=== PATIENT | male | born 1945 | race Caucasian/White ===

== ENCOUNTER 2019-09-12 11:30 | Emergency (ER) | payer BC ==
[2019-09-12] MEDS ORDERED: Ondansetron 4 MG/2 ML SDV IVPUSH ONE (12:17)
--- NOTE | 2019-09-12 12:21 | EDM.PDOC ---
ED HPI GENERAL MEDICAL PROBLEM - General Chief Complaint: Exposure to Heat or Cold Stated Complaint: SUN STROKE? Time Seen by Provider: 09/12/19 12:05 Source of Information: Reports: Patient History Limitations: Reports: No Limitations - History of Present Illness INITIAL COMMENTS - FREE TEXT/NARRATIVE: 74-year-old male who was working hard yesterday in a hot piece of large equipment, felt he got dehydrated and has been unable to catch up since. When he tries to drink something he can becomes nauseated and vomits, today he feels very weak. Developed chills last night, those seem to have improved. Denies any shortness of breath or chest pain, denies muscle cramps. Today his main concern is persistent weakness and vomiting if he tries to drink anything. Onset: Gradual (Symptoms developed gradually last evening after a long hot days work) Associated Symptoms: Reports: Diaphoresis, Fever/Chills, Loss of Appetite, Malaise, Nausea/Vomiting, Weakness. Denies: Confusion, Chest Pain, Cough - Related Data Allergies Allergy/AdvReac Type Severity Reaction Status Date / Time No Known Allergies Allergy Verified 09/12/19 12:24 Home Meds: Home Meds Levothyroxine Sodium [Synthroid] 25 mcg PO DAILY 09/12/19 [History] atorvaSTATin [Lipitor] 10 mg PO DAILY 09/12/19 [History] lisinopriL [Lisinopril] 10 mg PO DAILY 09/12/19 [History] Past Medical History Cardiovascular History: Reports: High Cholesterol, Hypertension Endocrine/Metabolic History: Reports: Hypothyroidism - Infectious Disease History Infectious Disease History: Reports: Chicken Pox Social & Family History - Tobacco Use Smoking Status *Q: Never Smoker - Caffeine Use Caffeine Use: Reports: Coffee - Recreational Drug Use Recreational Drug Use: No ED ROS GENERAL - Review of Systems Review Of Systems: See Below Constitutional: Reports: Chills, Malaise, Weakness HEENT: Reports: No Symptoms Respiratory: Denies: Shortness of Breath, Cough Cardiovascular: Denies: Chest Pain GI/Abdominal: Reports: Nausea, Vomiting. Denies: Abdominal Pain, Diarrhea : Reports: No Symptoms Skin: Reports: No Symptoms Neurological: Reports: Dizziness, Weakness. Denies: Headache Psychiatric: Reports: No Symptoms ED EXAM, GENERAL - Physical Exam Exam: See Below Exam Limited By: No Limitations General Appearance: Alert, No Apparent Distress Eye Exam: Bilateral Eye: Normal Inspection Head: Atraumatic Respiratory/Chest: No Respiratory Distress, Lungs Clear Cardiovascular: Regular Rate, Rhythm, Systolic Murmur (2/6 systolic ejection murmur) GI/Abdominal: Soft, Non-Tender Extremities: Normal Inspection. No: Pedal Edema Neurological: Alert, Oriented Psychiatric: Normal Affect, Normal Mood Skin Exam: Warm, Dry Course - Vital Signs Last Recorded V/S: Last Vital Signs Temp 99.2 F 09/12/19 12:02 Pulse 96 09/12/19 12:02 Resp 16 09/12/19 12:02 BP 122/65 09/12/19 12:02 Pulse Ox 92 L 09/12/19 12:02 - Orders/Labs/Meds Labs: Laboratory Tests 09/12/19 09/12/19 Range/Units 12:28 12:28 WBC 10.5 (4.5-11.0) K/uL RBC 4.36 (4.30-5.90) M/uL Hgb 14.2 (12.0-15.0) g/dL Hct 44.3 (40.0-54.0) % MCV 102 H (80-98) fL MCH 33 H (27-31) pg MCHC 32 (32-36) % Plt Count 691 H (150-400) K/uL Neut % (Auto) 91 H (36-66) % Lymph % (Auto) 3 L (24-44) % [place] % (Auto) 5 (2-6) % Eos % (Auto) 0 L (2-4) % Baso % (Auto) 0 (0-1) % Sodium 137 L (140-148) mmol/L Potassium 4.2 (3.6-5.2) mmol/L Chloride 101 (100-108) mmol/L Carbon Dioxide 28 (21-32) mmol/L Anion Gap 12.2 (5.0-14.0) mmol/L BUN 22 H (7-18) mg/dL Creatinine 1.6 H (0.8-1.3) mg/dL Est Cr Clr Drug Dosing 44.45 mL/min Estimated GFR (MDRD) 43 L (>60) Glucose 145 H (74-106) mg/dL Calcium 8.4 L (8.5-10.1) mg/dL Total Bilirubin 0.4 (0.2-1.0) mg/dL AST 28 (15-37) U/L ALT 33 (12-78) U/L Alkaline Phosphatase 68 (46-116) U/L Troponin I < 0.017 (0.000-0.056) ng/mL Total Protein 7.4 (6.4-8.2) g/dL Albumin 3.4 (3.4-5.0) g/dL Globulin 4.0 H (2.3-3.5) g/dL Albumin/Globulin Ratio 0.9 L (1.2-2.2) Meds: Medications Discontinued Medications Generic Name Dose Route Start Last Admin Trade Name Freq PRN Reason Stop Dose Admin Sodium Chloride 1,000 mls @ 1,000 mls/hr 09/12/19 12:30 09/12/19 12:32 Normal Saline IV 1,000 mls/hr ASDIRECTED FCO Administration Ondansetron HCl 4 mg 09/12/19 12:17 09/12/19 12:32 Zofran IVPUSH 09/12/19 12:18 4 mg ONETIME ONE Administration - Re-Assessments/Exams Free Text/Narrative Re-Assessment/Exam: 09/12/19 12:21 Patient will be bolused with 1000 cc of normal saline, CBC CMP troponin obtained. Also given 4 mg of IV Zofran. 09/12/19 13:00 CBC and CMP are reassuring other than an elevated creatinine at 1.6 and a mildly decreased GFR at 46. No previous levels were available for comparison. Patient was at rest and had no further nausea or vomiting while in the emergency room after the medication was given. He will receive a full liter of saline and we will plan to discharge with a diagnosis of heat exhaustion with nausea and vomiting. 09/12/19 14:11 5 doses of sublingual Zofran were sent with the patient, he was encouraged to slowly but persistently increase his oral intake and activity and recheck in the next 24 to 48 hours if not improving satisfactorily. Departure - Departure Time of Disposition: 14:27 Disposition: Home, Self-Care 01 Clinical Impression: Dehydration, moderate Heat exhaustion Qualifiers: Encounter type: initial encounter Qualified Code(s): T67.5XXA - Heat exhaustion , unspecified, initial encounter - Discharge Information Instructions: Heat Exhaustion Referrals: PCP,None [Primary Care Provider] - Forms: ED Department Discharge Care Plan Goals: Rest the next 24 to 48 hours and increase activity and diet as tolerated. Steady and slow hydration is best, and use sublingual Zofran if nausea or vomiting recurs. Return anytime if worsening or concerns. Sepsis Event Note - Evaluation Sepsis Screening Result: No Definite Risk - Focused Exam Vital Signs: Vital Signs Temp Pulse Resp BP Pulse Ox 09/12/19 12:02 99.2 F 96 16 122/65 92 L 09/12/19 11:47 99.2 F 96 16 122/65 92 L Date Exam was Performed: 09/12/19 Time Exam was Performed: 15:18
[2019-09-12] MEDS ORDERED: Sodium Chloride 0.9% 1,000 ML IV SCH (12:30)
== END 2019-09-12 14:27 | disposition home or self-care (01) ==
LOC: JP.ED 11:30
DX: T67.5XXA Heat exhaustion, unspecified, initial encounter (principal); E86.0 Dehydration; I10 Essential (primary) hypertension; E78.00 Pure hypercholesterolemia, unspecified; E03.9 Hypothyroidism, unspecified; Z79.899 Other long term (current) drug therapy
CPT/HCPCS: 36415; 80053; 84484; 85025; 96361; 96374; 99284; J2405; J7030

== ENCOUNTER 2019-09-13 09:42 | Inpatient (IN) | payer BC, MEDICARE ==
--- NOTE | 2019-09-13 10:01 | EDM.PDOC ---
ED HPI GENERAL MEDICAL PROBLEM - General Chief Complaint: Fever Stated Complaint: CONT ISSUES WITH HEAT STROKE Time Seen by Provider: 09/13/19 09:45 Source of Information: Reports: Patient, EMS History Limitations: Reports: Other (Mild confusion) - History of Present Illness INITIAL COMMENTS - FREE TEXT/NARRATIVE: 74-year-old male who was seen yesterday in the emergency room for heat exhaustion. After 1 L of normal saline, IV Zofran he felt much better but still after being home realized he was weak, felt somewhat clumsy and continued to have a mild headache. He woke up at 3 AM with shaking chills, teeth chattering, and this morning redeveloped some nausea and vomiting. Still does not have shortness of breath, cough, chest pain, palpitations, abdominal pain or rash. Only symptoms are persistent frontal headache, nausea and vomiting and now fever. His thinks he is mildly confused. He was brought in by EMS. Temperature now is 101.5, mild hypotension. Onset: Unknown/Unsure Associated Symptoms: Reports: Confusion, Fever/Chills, Headaches, Malaise, Nausea/Vomiting, Weakness. 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) (Zofran he was given yesterday is helping) - Related Data Allergies Allergy/AdvReac Type Severity Reaction Status Date / Time No Known Allergies Allergy Verified 09/12/19 12:24 Home Meds: Home Meds Levothyroxine Sodium [Synthroid] 25 mcg PO DAILY 09/12/19 [History] atorvaSTATin [Lipitor] 20 mg PO DAILY 09/12/19 [History] lisinopriL [Lisinopril] 40 mg PO DAILY 09/12/19 [History] Anagrelide [Agrylin] 0.5 mg PO DAILY 09/13/19 [History] Ondansetron [Ondansetron ODT] 4 mg PO ASDIRECTED PRN 09/13/19 [History] Past Medical History Cardiovascular History: Reports: High Cholesterol, Hypertension Endocrine/Metabolic History: Reports: Hypothyroidism - Infectious Disease History Infectious Disease History: Reports: Chicken Pox Social & Family History - Tobacco Use Smoking Status *Q: Unknown Ever Smoked - Caffeine Use Caffeine Use: Reports: Coffee ED ROS GENERAL - Review of Systems Review Of Systems: See Below Constitutional: Reports: Fever, Chills, Malaise HEENT: Reports: Other (Some mild bilateral conjunctival and scleral erythema is present. Pupils are reactive. EOMs intact.) Respiratory: Reports: Other (Denies cough or shortness of breath despite oximetry being 91% on room air) Cardiovascular: Denies: Chest Pain GI/Abdominal: Reports: Nausea, Vomiting. Denies: Abdominal Pain, Diarrhea : Reports: No Symptoms Neurological: Reports: Confusion, Headache ED EXAM, GENERAL - Physical Exam Exam: See Below Exam Limited By: No Limitations General Appearance: Alert, No Apparent Distress Eye Exam: Bilateral Eye: Conjunctival Injection (Some moderate conjunctival and scleral injection), PERRL Head: Atraumatic Neck: Non-Tender Respiratory/Chest: Crackles (Bibasilar crackles, symmetric) Cardiovascular: Regular Rate, Rhythm, Tachycardia, Systolic Murmur GI/Abdominal: Soft, Non-Tender Extremities: Normal Inspection. No: Pedal Edema Neurological: Alert, Oriented, Other (Some mild hesitation with answering questions but for the most part now oriented x3 with little to no confusion) Psychiatric: Normal Affect, Normal Mood Skin Exam: Warm, Dry Course - Vital Signs Last Recorded V/S: Last Vital Signs Temp 97.5 F 09/13/19 13:30 Pulse 89 09/13/19 11:19 Resp 12 09/13/19 14:00 BP 97/53 L 09/13/19 14:00 Pulse Ox 94 L 09/13/19 14:00 - Orders/Labs/Meds Orders: Active Orders 24 hr Category Date Time Status [id number] SARS-COV-2 RNA Stat Lab 09/13/19 12:15 Received CULTURE BLOOD [BC] Urgent Lab 09/13/19 10:00 Received CULTURE BLOOD [BC] Urgent Lab 09/13/19 10:02 Received CULTURE CSF + SMEAR [RM] Stat Lab 09/13/19 11:28 Results HSV 1/2 PCR Routine Lab 09/13/19 11:32 Received LYME (B. BURGDORFERI) PCR Routine Lab 09/13/19 11:32 Received Lactobacillus Rhamnosus GG [Culturelle] Med 09/13/19 12:30 Active 1 cap PO BID Levofloxacin/Dextrose 5%-Water [Levaquin in D5W 750 MG/ Med 09/13/19 12:30 Active 150 ML] 750 mg Premix Bag 1 bag IV Q48H Blood Culture x2 Reflex Set [OM.PC] Urgent Oth 09/13/19 09:48 Ordered Medication Orders Acetaminophen (Tylenol) 650 mg PO Q4H PRN PRN Reason: Pain (Mild 1-3)/fever Albuterol (Ventolin Hfa) 0 gm INH Q2H PRN PRN Reason: Dyspnea Atorvastatin Calcium (Lipitor) 20 mg PO DAILY FCO Enoxaparin Sodium (Lovenox) 40 mg SUBCUT Q24H [facility] Hydrocortisone Sodium Succinate (Solu-Cortef) 100 mg IVPUSH Q12H [facility] Last Admin: 09/13/19 13:45 Dose: 100 mg Levofloxacin/Dextrose 750 mg/ (Premix) 150 mls @ 100 mls/hr IV Q48H [facility] Stop: 09/13/19 15:00 Last Admin: 09/13/19 12:37 Dose: 100 mls/hr Vancomycin HCl 2 gm/ Sodium (Chloride) 500 mls @ 250 mls/hr IV ONETIME ONE Stop: 09/13/19 16:59 Vancomycin HCl 1.5 gm/ Sodium (Chloride) 250 mls @ 166.667 mls/hr IV Q24H [facility] Piperacillin/Tazobactam/ (Dextrose 3.375 gm/ Premix) 50 mls @ 100 mls/hr IV Q6H [facility]CO Lactated Ringer's (Ringers, Lactated) 1,000 mls @ 125 mls/hr IV ASDIRECTED [facility] Last Admin: 09/13/19 13:44 Dose: 125 mls/hr Levofloxacin/Dextrose 750 mg/ (Premix) 150 mls @ 100 mls/hr IV Q48H [facility] Norepinephrine Bitartrate 4 mg (/ Dextrose/Water) 250 mls @ 7.5 mls/hr IV TITRATE FCO; Protocol Lactobacillus Rhamnosus (Culturelle) 1 cap PO BID FCO Last Admin: 09/13/19 13:45 Dose: 1 cap Levothyroxine Sodium (Levothyroxine) 25 mcg PO ACBREAKFAST [facility]CO Ondansetron HCl (Zofran) 4 mg IV Q4H PRN PRN Reason: Nausea/Vomiting Polyethylene Glycol (Miralax) 17 gm PO DAILY PRN PRN Reason: Constipation Sodium Chloride (Saline Flush) 10 ml FLUSH ASDIRECTED PRN PRN Reason: Keep Vein Open Labs: Laboratory Tests 09/13/19 09/13/19 09/13/19 Range/Units 10:00 10:00 10:00 WBC 11.6 H (4.5-11.0) K/uL RBC 3.77 L (4.30-5.90) M/uL Hgb 12.7 (12.0-15.0) g/dL Hct 37.9 L (40.0-54.0) % MCV 101 H (80-98) fL MCH 34 H (27-31) pg MCHC 34 (32-36) % Plt Count 580 H (150-400) K/uL Neut % (Auto) 96 H (36-66) % Lymph % (Auto) 3 L (24-44) % [place] % (Auto) 1 L (2-6) % Eos % (Auto) 0 L (2-4) % Baso % (Auto) 0 (0-1) % Sodium 135 L (140-148) mmol/L Potassium 3.3 L (3.6-5.2) mmol/L Chloride 102 (100-108) mmol/L Carbon Dioxide 25 (21-32) mmol/L Anion Gap 11.3 (5.0-14.0) mmol/L BUN 24 H (7-18) mg/dL Creatinine 1.9 H (0.8-1.3) mg/dL Est Cr Clr Drug Dosing 37.28 mL/min Estimated GFR (MDRD) 35 L (>60) Glucose 109 H (74-106) mg/dL Lactic Acid 1.3 (0.4-2.0) mmol/L Calcium 7.5 L (8.5-10.1) mg/dL Total Bilirubin 0.7 D (0.2-1.0) mg/dL AST 73 H D (15-37) U/L ALT 48 (12-78) U/L Alkaline Phosphatase 76 (46-116) U/L Total Protein 6.0 L (6.4-8.2) g/dL Albumin 2.6 L (3.4-5.0) g/dL Globulin 3.4 (2.3-3.5) g/dL Albumin/Globulin Ratio 0.8 L (1.2-2.2) CSF Tube Number CSF Volume mls CSF Appearance (CLEAR) CSF Color (COLORLESS) CSF WBC (0-5) /ul CSF RBC (0-0) /ul CSF Mononuclear Cells (54-100) % CSF Polymorphonuclear (0-7) % CSF Glucose (40-70) mg/dL CSF Total Protein (15-45) mg/dL 09/13/19 09/13/19 Range/Units 11:21 11:21 WBC (4.5-11.0) K/uL RBC (4.30-5.90) M/uL Hgb (12.0-15.0) g/dL Hct (40.0-54.0) % MCV (80-98) fL MCH (27-31) pg MCHC (32-36) % Plt Count (150-400) K/uL Neut % (Auto) (36-66) % Lymph % (Auto) (24-44) % [place] % (Auto) (2-6) % Eos % (Auto) (2-4) % Baso % (Auto) (0-1) % Sodium (140-148) mmol/L Potassium (3.6-5.2) mmol/L Chloride (100-108) mmol/L Carbon Dioxide (21-32) mmol/L Anion Gap (5.0-14.0) mmol/L BUN (7-18) mg/dL Creatinine (0.8-1.3) mg/dL Est Cr Clr Drug Dosing mL/min Estimated GFR (MDRD) (>60) Glucose (74-106) mg/dL Lactic Acid (0.4-2.0) mmol/L Calcium (8.5-10.1) mg/dL Total Bilirubin (0.2-1.0) mg/dL AST (15-37) U/L ALT (12-78) U/L Alkaline Phosphatase (46-116) U/L Total Protein (6.4-8.2) g/dL Albumin (3.4-5.0) g/dL Globulin (2.3-3.5) g/dL Albumin/Globulin Ratio (1.2-2.2) CSF Tube Number 3 CSF Volume 1.5 mls CSF Appearance Clear (CLEAR) CSF Color Colorless (COLORLESS) CSF WBC 3 (0-5) /ul CSF RBC 3 H (0-0) /ul CSF Mononuclear Cells 100 (54-100) % CSF Polymorphonuclear 0 (0-7) % CSF Glucose 71 H (40-70) mg/dL CSF Total Protein 37.5 (15-45) mg/dL Meds: Medications Generic Name Dose Route Start Last Admin Trade Name Freq PRN Reason Stop Dose Admin Acetaminophen 650 mg 09/13/19 13:21 Tylenol PO Q4H PRN Pain (Mild 1-3)/fever Albuterol 0 gm 09/13/19 13:48 Ventolin Hfa INH Q2H PRN Dyspnea Atorvastatin Calcium 20 mg 09/14/19 09:00 Lipitor PO DAILY FCO Enoxaparin Sodium 40 mg 09/13/19 15:00 Lovenox SUBCUT Q24H [facility]CO Hydrocortisone Sodium Succinate 100 mg 09/13/19 14:00 09/13/19 13:45 Solu-Cortef IVPUSH 100 mg Q12H [facility]CO Administration Levofloxacin/Dextrose 750 mg/ 150 mls @ 100 mls/hr 09/13/19 12:30 09/13/19 12 :37 Premix IV 09/13/19 15:00 100 mls/hr Q48H FCO Administration Vancomycin HCl 2 gm/ Sodium 500 mls @ 250 mls/hr 09/13/19 15:00 Chloride IV 09/13/19 16:59 ONETIME ONE Vancomycin HCl 1.5 gm/ Sodium 250 mls @ 166.667 mls/hr 09/14/19 15:00 Chloride IV Q24H FCO Piperacillin/Tazobactam/ 50 mls @ 100 mls/hr 09/13/19 18:30 Dextrose 3.375 gm/ Premix IV Q6H FCO Lactated Ringer's 1,000 mls @ 125 mls/hr 09/13/19 13:21 09/13/19 13:44 Ringers, Lactated IV 125 mls/hr ASDIRECTED FCO Administration Levofloxacin/Dextrose 750 mg/ 150 mls @ 100 mls/hr 09/15/19 11:00 Premix IV Q48H [facility]CO Norepinephrine Bitartrate 4 mg 250 mls @ 7.5 mls/hr 09/13/19 13:30 / Dextrose/Water IV TITRATE FCO Protocol 2 MCG/MIN Lactobacillus Rhamnosus 1 cap 09/13/19 12:30 09/13/19 13:45 Culturelle PO 1 cap BID FCO Administration Levothyroxine Sodium 25 mcg 09/14/19 07:30 Levothyroxine PO ACBREAKFAST FCO Ondansetron HCl 4 mg 09/13/19 13:21 Zofran IV Q4H PRN Nausea/Vomiting Polyethylene Glycol 17 gm 09/13/19 13:21 Miralax PO DAILY PRN Constipation Sodium Chloride 10 ml 09/13/19 13:21 Saline Flush FLUSH ASDIRECTED PRN Keep Vein Open Discontinued Medications Generic Name Dose Route Start Last Admin Trade Name Freq PRN Reason Stop Dose Admin Sodium Chloride 1,000 mls @ 1,000 mls/hr 09/13/19 10:15 09/13/19 10:07 Normal Saline IV 1,000 mls/hr ASDIRECTED [facility]CO Administration Lactated Ringer's 1,000 mls @ 1,000 mls/hr 09/13/19 11:15 09/13/19 11:17 Ringers, Lactated IV 1,000 mls/hr ASDIRECTED FCO Administration Ceftriaxone Sodium 1 gm/ 50 mls @ 100 mls/hr 09/13/19 11:30 09/13/19 11:39 Sodium Chloride IV 09/13/19 11:59 100 mls/hr ONETIME ONE Administration Lactated Ringer's 1,000 mls @ 999 mls/hr 09/13/19 12:15 09/13/19 12:22 Ringers, Lactated IV 09/13/19 13:16 999 mls/hr ASDIRECTED FCO Administration Piperacillin/Tazobactam/ 50 mls @ 100 mls/hr 09/13/19 12:30 09/13/19 12:54 Dextrose 3.375 gm/ Premix IV 09/13/19 14:00 100 mls/hr Q6H FCO Administration Non-Formulary Medication 0.5 mg 09/14/19 09:00 Anagrelide [Agrylin] PO DAILY FCO Vancomycin HCl 1 gm 09/13/19 13:00 Vancomycin IV 09/13/19 13:01 .PHARMACY TO DOSE [facility] - Re-Assessments/Exams Free Text/Narrative Re-Assessment/Exam: 09/13/19 10:05 1 L of normal saline bolus given, CBC, CMP, lactic acid and blood cultures obtained. 1 view chest x-ray obtained. I did consult anesthesia for an LP, becoming concerned about viral meningitis. 09/13/19 10:25 Chest x-ray shows mild diffuse increase in pulmonary markings, nonspecific. White count is now 11,600 with 96% neutrophils. Patient remained mildly hypotensive, systolic blood pressure around 90. 09/13/19 11:39 Creatinine is 1.9, GFR 35, both these levels are slightly worse than yesterday. Despite fluid replacement he remained hypotensive. Opening pressure on the lumbar puncture was 20, spinal fluid was clear. 1 g of Rocephin IV was started pending lab results and Dr. Haque was consulted for admission for possible sepsis. COVID-19 testing was obtained. Departure - Departure Time of Disposition: 13:41 Disposition: Admitted As Inpatient 68 Clinical Impression: Pneumonia, Fever and chills - Discharge Information Sepsis Event Note - Evaluation Sepsis Screening Result: Possible Severe Sepsis Risk - Focused Exam Vital Signs: Vital Signs Temp Pulse Resp BP Pulse Ox 09/13/19 11:41 16 99/39 L 95 09/13/19 11:37 16 85/40 L 95 09/13/19 11:19 89 17 74/50 L 92 L 09/13/19 10:40 101.5 F H 90 16 84/44 L 94 L 09/13/19 10:17 101 H 18 81/50 L 92 L 09/13/19 09:46 101.4 F H 105 H 15 95/47 L 91 L 09/13/19 09:45 101.4 F H 105 H 15 95/47 L 91 L Date Exam was Performed: 09/13/19 Time Exam was Performed: 14:44 - My Orders Last 24 Hours: My Active Orders 09/13/19 09:48 Blood Culture x2 Reflex Set [OM.PC] Urgent 09/13/19 10:00 CULTURE BLOOD [BC] Urgent 09/13/19 10:02 CULTURE BLOOD [BC] Urgent 09/13/19 11:28 CULTURE CSF + SMEAR [RM] Stat 09/13/19 11:32 HSV 1/2 PCR Routine LYME (B. BURGDORFERI) PCR Routine 09/13/19 12:15 [id number] SARS-COV-2 RNA Stat - Assessment/Plan Last 24 Hours: My Active Orders 09/13/19 09:48 Blood Culture x2 Reflex Set [OM.PC] Urgent 09/13/19 10:00 CULTURE BLOOD [BC] Urgent 09/13/19 10:02 CULTURE BLOOD [BC] Urgent 09/13/19 11:28 CULTURE CSF + SMEAR [RM] Stat 09/13/19 11:32 HSV 1/2 PCR Routine LYME (B. BURGDORFERI) PCR Routine 09/13/19 12:15 [id number] SARS-COV-2 RNA Stat
--- NOTE | 2019-09-13 10:13 | CR ---
CHEST: Portable 09/13/2019 at 10:05 AM CLINICAL HISTORY:Hypoxia COMPARISON:None FINDINGS: Heart size is normal. There is diffuse prominence of lung markings bilaterally. Pulmonary vascular is poorly defined. There are atherosclerotic changes in the aorta. There are no effusions. IMPRESSION: Diffuse increased lung markings. This could represent some pulmonary venous hypertension and mild failure. A diffuse pneumonitis is not excluded. Upright two-view chest is recommended when patient's condition allows
[2019-09-13] MEDS ORDERED: Sodium Chloride 0.9% 1,000 ML IV SCH (10:15)
[2019-09-13] MEDS ORDERED: cefTRIAXone 1 GM in Sodium Chloride 0.9% 50 ML IV ONE ×2 (11:12→11:30)
[2019-09-13] MEDS ORDERED: Lactated Ringers 1,000 ML IV SCH ×2 (11:15→12:15)
--- NOTE | 2019-09-13 12:10 | ANES ---
DATE OF SERVICE: 09/13/2019 TIME: 10:45. INDICATIONS: I was called to the ER by Dr. Jackson to evaluate Mr. Berg for a spinal tap. He has been having pretty severe headaches and he would like to rule out meningitis. The risks and benefits of procedure were explained to the patient. He wished to proceed with a spinal tap. TECHNIQUE: He was placed in the left lateral decubitus position. I prepped his back with Betadine x3, 1% lidocaine skin local was used. I did the spinal tap at the L4-5 level. There was positive CSF and the initial pressure was 20 cm of water. The fluid was clear. I subsequently collected 4 separate tubes with 1 mL of CSF per tube. These were date and timed and sent to the lab. He tolerated procedure very nicely. His vital signs remained stable throughout the procedure and nurse was with me for the entire procedure. There were no anesthesia complications noted. Theo Franco CRNA /[id number]
[2019-09-13] MEDS ORDERED: Piperacillin/Tazobactam/Dext 3.375 GM in Premix Bag 1 BAG IV SCH (12:30)
[2019-09-13] MEDS: Levofloxacin/Dextrose 5%-Water 750 MG in Premix Bag 1 BAG IV SCH ×3 (12:35→12:37)
--- NOTE | 2019-09-13 12:36 | PCM.HP.2 ---
H&P History of Present Illness - General Date of Service: 09/13/19 Admit Problem/Dx: Admission Diagnosis/Problem Admission Diagnosis/Problem Pneumonia Source of Information: Patient, Old Records, Provider, RN Notes Reviewed History Limitations: Reports: No Limitations - History of Present Illness Initial Comments - Free Text/Narative: Mr. Berg is a 74-year-old gentleman who was admitted through the emergency department with headache, weakness, nausea, acute kidney injury, secondary to bilateral pneumonia and sepsis. He reports that he has not felt well for the last 2 days, because of weakness he presented to the emergency department yesterday and was thoroughly evaluated. No specific abnormalities were identified and he was felt to have had probable dehydration because he improved significantly following 1 L of IV fluids. Unfortunately after discharge the nausea recurred and he began to note some fevers as well as ongoing weakness. He re-presented to the emergency department this morning, white blood cell count is modestly elevated and he did have a documented temperature elevation of 101.5 degrees. Chest x-ray shows possible bilateral infiltrates, he denies shortness of breath or cough. He has no other symptoms of localized infection other than his headache. Lumbar puncture is been performed and preliminary results from the LP showed no evidence of active bacterial or viral infection. Blood pressure has been low in the emergency department but does appear to be responding to IV fluids given per sepsis protocol. - Related Data Allergies/Adverse Reactions: Allergies Allergy/AdvReac Type Severity Reaction Status Date / Time No Known Allergies Allergy Verified 09/12/19 12:24 Home Medications: Home Meds Levothyroxine Sodium [Synthroid] 25 mcg PO DAILY 09/12/19 [History] atorvaSTATin [Lipitor] 20 mg PO DAILY 09/12/19 [History] lisinopriL [Lisinopril] 40 mg PO DAILY 09/12/19 [History] Anagrelide [Agrylin] 0.5 mg PO DAILY 09/13/19 [History] Ondansetron [Ondansetron ODT] 4 mg PO ASDIRECTED PRN 09/13/19 [History] Past Medical History Cardiovascular History: Reports: High Cholesterol, Hypertension Endocrine/Metabolic History: Reports: Hypothyroidism - Infectious Disease History Infectious Disease History: Reports: Chicken Pox Social & Family History - Tobacco Use Smoking Status *Q: Unknown Ever Smoked - Caffeine Use Caffeine Use: Reports: Coffee H&P Review of Systems - Review of Systems: Review Of Systems: See Below General: Reports: Fever, Chills, Malaise, Weakness, Diaphoresis, Decreased Appetite HEENT: Reports: Headaches. Denies: Ear Pain, Eye Pain, Rhinitis, Sinus Congestion, Sore Throat Pulmonary: Reports: No Symptoms Cardiovascular: Reports: No Symptoms Gastrointestinal: Reports: No Symptoms Genitourinary: Reports: No Symptoms Musculoskeletal: Reports: No Symptoms Skin: Reports: No Symptoms Psychiatric: Reports: No Symptoms Neurological: Reports: Confusion, Headache. Denies: Dizziness, Numbness, Pre- Existing Deficit, Syncope, Weakness, Change in Speech Hematologic/Lymphatic: Reports: No Symptoms Immunologic: Reports: No Symptoms Exam - Exam Exam: See Below - Vital Signs Vital Signs: Last Vital Signs Temp 101.5 F H 09/13/19 10:40 Pulse 89 09/13/19 11:19 Resp 16 09/13/19 11:41 BP 99/39 L 09/13/19 11:41 Pulse Ox 95 09/13/19 11:41 Weight: 223 lb 15.834 oz - Exam Quality Assessment: DVT Prophylaxis General: Alert, Oriented, Cooperative, Moderate Distress HEENT: Conjunctiva Clear, Hearing Intact, Normal Nasal Septum, Posterior Pharynx Clear, Pupils Equal. No: Mucosa Moist & [employer] Neck: Supple, Trachea Midline, +2 Carotid Pulse wo Bruit Lungs: Clear to Auscultation, Normal Respiratory Effort Cardiovascular: Regular Rate, Regular Rhythm, Normal S1, Normal S2. No: Systolic Murmur, Diastolic Murmur GI/Abdominal Exam: Soft, Non-Tender, No Organomegaly, No Distention Back Exam: Normal Inspection, Full Range of Motion Extremities: Non-Tender, No Pedal Edema Skin: Warm, Dry, Intact Neurological: Cranial Nerves Intact, Strength Equal Bilateral, Normal Speech, Normal Tone, Sensation Intact. No: Focal Deficit Neuro Extensive - Mental Status: Alert, Oriented x3, Normal Mood/Affect, Normal Cognition, Memory Intact - Patient Data Lab Results Last 24 hrs: Laboratory Results - last 24 hr 09/13/19 09/13/19 09/13/19 Range/Units 10:00 10:00 10:00 WBC 11.6 H (4.5-11.0) K/uL RBC 3.77 L (4.30-5.90) M/uL Hgb 12.7 (12.0-15.0) g/dL Hct 37.9 L (40.0-54.0) % MCV 101 H (80-98) fL MCH 34 H (27-31) pg MCHC 34 (32-36) % Plt Count 580 H (150-400) K/uL Neut % (Auto) 96 H (36-66) % Lymph % (Auto) 3 L (24-44) % [place] % (Auto) 1 L (2-6) % Eos % (Auto) 0 L (2-4) % Baso % (Auto) 0 (0-1) % Sodium 135 L (140-148) mmol/L Potassium 3.3 L (3.6-5.2) mmol/L Chloride 102 (100-108) mmol/L Carbon Dioxide 25 (21-32) mmol/L Anion Gap 11.3 (5.0-14.0) mmol/L BUN 24 H (7-18) mg/dL Creatinine 1.9 H (0.8-1.3) mg/dL Est Cr Clr Drug Dosing 37.28 mL/min Estimated GFR (MDRD) 35 L (>60) Glucose 109 H (74-106) mg/dL Lactic Acid 1.3 (0.4-2.0) mmol/L Calcium 7.5 L (8.5-10.1) mg/dL Total Bilirubin 0.7 D (0.2-1.0) mg/dL AST 73 H D (15-37) U/L ALT 48 (12-78) U/L Alkaline Phosphatase 76 (46-116) U/L Total Protein 6.0 L (6.4-8.2) g/dL Albumin 2.6 L (3.4-5.0) g/dL Globulin 3.4 (2.3-3.5) g/dL Albumin/Globulin Ratio 0.8 L (1.2-2.2) CSF Glucose (40-70) mg/dL CSF Total Protein (15-45) mg/dL // Range/Units 11:21 WBC (4.5-11.0) K/uL RBC (4.30-5.90) M/uL Hgb (12.0-15.0) g/dL Hct (40.0-54.0) % MCV (80-98) fL MCH (27-31) pg MCHC (32-36) % Plt Count (150-400) K/uL Neut % (Auto) (36-66) % Lymph % (Auto) (24-44) % [place] % (Auto) (2-6) % Eos % (Auto) (2-4) % Baso % (Auto) (0-1) % Sodium (140-148) mmol/L Potassium (3.6-5.2) mmol/L Chloride (100-108) mmol/L Carbon Dioxide (21-32) mmol/L Anion Gap (5.0-14.0) mmol/L BUN (7-18) mg/dL Creatinine (0.8-1.3) mg/dL Est Cr Clr Drug Dosing mL/min Estimated GFR (MDRD) (>60) Glucose (74-106) mg/dL Lactic Acid (0.4-2.0) mmol/L Calcium (8.5-10.1) mg/dL Total Bilirubin (0.2-1.0) mg/dL AST (15-37) U/L ALT (12-78) U/L Alkaline Phosphatase (46-116) U/L Total Protein (6.4-8.2) g/dL Albumin (3.4-5.0) g/dL Globulin (2.3-3.5) g/dL Albumin/Globulin Ratio (1.2-2.2) CSF Glucose 71 H (40-70) mg/dL CSF Total Protein 37.5 (15-45) mg/dL Result Diagrams: 09/13/19 10:00 09/13/19 10:00 Dayron Results Last 24 hrs: Microbiology 09/13/19 11:28 Gram Stain - Final Cerebral Spinal Fluid Sepsis Event Note - Evaluation Sepsis Screening Result: Possible Severe Sepsis Risk - Focused Exam Vital Signs: Vital Signs Temp Pulse Resp BP Pulse Ox 09/13/19 11:41 16 99/39 L 95 09/13/19 11:37 16 85/40 L 95 09/13/19 11:19 89 17 74/50 L 92 L 09/13/19 10:40 101.5 F H 90 16 84/44 L 94 L 09/13/19 10:17 101 H 18 81/50 L 92 L 09/13/19 09:46 101.4 F H 105 H 15 95/47 L 91 L 09/13/19 09:45 101.4 F H 105 H 15 95/47 L 91 L Date Exam was Performed: 09/13/19 Time Exam was Performed: 12:45 *Q Meaningful Use (ADM) - VTE Risk Assess *Q Each Risk Factor Represents 1 Point: Obesity ( BMI > 25 kg/m2) Total Score 1 Point Risk Factors: 1 Each Risk Factor Represents 2 Points: Age 60 - 74 Years Total Score 2 Point Risk Factors: 2 Each Risk Factor Represents 3 Points: None Total Score 3 Point Risk Factors: 0 Each Risk Factor Represents 5 Points: None Total Score 5 Point Risk Factors: 0 Venous Thromboembolism Risk Factor Score *Q: 3 Problem List Initiated/Reviewed/Updated: Yes Orders Last 24hrs: Active Orders 24 hr Category Date Time Status Patient Status Manage Transfer [TRANSFER] Routine ADT 09/13/19 12:23 Ordered CELL COUNT,CSF [BF] Stat Lab 09/13/19 11:21 Ordered CORONAVIRUS COVID-19, JENNIFER Stat Lab 09/13/19 11:19 Ordered CULTURE BLOOD [BC] Urgent Lab 09/13/19 10:00 Received CULTURE BLOOD [BC] Urgent Lab 09/13/19 10:02 Received CULTURE CSF + SMEAR [RM] Stat Lab 09/13/19 11:28 Results HSV 1/2 PCR Routine Lab 09/13/19 11:32 Received LYME (B. BURGDORFERI) PCR Routine Lab 09/13/19 11:32 Received Lactated Ringers [Ringers, Lactated] 1,000 ml Med 09/13/19 11:15 Active IV ASDIRECTED Lactated Ringers [Ringers, Lactated] 1,000 ml Med 09/13/19 12:15 Active IV ASDIRECTED Lactobacillus Rhamnosus GG [Culturelle] Med 09/13/19 12:30 Active 1 cap PO BID Levofloxacin/Dextrose 5%-Water [Levaquin in D5W 750 MG/ Med 09/13/19 12:30 Active 150 ML] 750 mg Premix Bag 1 bag IV Q48H Piperacillin/Tazobactam [Zosyn] 3.375 gm Med 09/13/19 12:15 Ordered Sodium Chloride 0.9% [Normal Saline] 50 ml IV Q6H Sodium Chloride 0.9% [Normal Saline] 1,000 ml Med 09/13/19 10:15 Active IV ASDIRECTED Vancomycin Med 09/13/19 13:00 Ordered 1 gm IV .PHARMACY TO DOSE Blood Culture x2 Reflex Set [OM.PC] Urgent Oth 09/13/19 09:48 Ordered Resuscitation Status Routine Resus Stat 09/13/19 12:26 Ordered Medication Orders Sodium Chloride (Normal Saline) 1,000 mls @ 1,000 mls/hr IV ASDIRECTED [facility] Last Admin: 09/13/19 10:07 Dose: 1,000 mls/hr Lactated Ringer's (Ringers, Lactated) 1,000 mls @ 1,000 mls/hr IV ASDIRECTED [facility] Last Admin: 09/13/19 11:17 Dose: 1,000 mls/hr Lactated Ringer's (Ringers, Lactated) 1,000 mls @ 999 mls/hr IV ASDIRECTED [facility] Stop: 09/13/19 13:16 Last Admin: 09/13/19 12:22 Dose: 999 mls/hr Levofloxacin/Dextrose 750 mg/ (Premix) 150 mls @ 100 mls/hr IV Q48H [facility] Piperacillin Sod/Tazobactam (Sod 3.375 gm/ Sodium Chloride) 50 mls @ 100 mls/ hr IV Q6H [facility] Lactobacillus Rhamnosus (Culturelle) 1 cap PO BID [facility] Vancomycin HCl (Vancomycin) 1 gm IV .PHARMACY TO DOSE [facility] Assessment/Plan Comment:: ASSESSMENT AND PLAN PNEUMONIA WITH SEPSIS-there are no other obvious sources of infection identified , bilateral hazy infiltrates noted on chest x-ray. Viral versus bacterial. -IV fluids per sepsis protocol -Blood cultures pending -COVID-19 test pending -Broad-spectrum IV antibiotic therapy; vancomycin, Zosyn, levofloxacin, pending other test results and cultures -Lumbar puncture studies pending -Additional studies including pro calcitonin, CK, CRP, ferritin, and d-dimer ACUTE KIDNEY INJURY-likely secondary to dehydration and intravascular volume depletion -IV fluids as above -Sling monitor urine output and renal function MAINTENANCE ISSUES -DVT prophylaxis; Lovenox 40 mg subcu daily -GI prophylaxis; not indicated -Jc catheter; not indicated -Nutrition; regular diet -Nicotine dependence; not required CODE STATUS-FULL CODE ADMISSION STATUS-patient will be admitted to inpatient status, expect at least a 2 night hospital stay for evaluation and management of problems as outlined above. At the time of this admission I do not reasonably expected evaluation and management of this problem will require more than a 96 hour hospital stay. DISPOSITION-anticipate discharge to home after the hospital stay. PRIMARY CARE PROVIDER- - Mortality Measure Prognosis:: Good
[2019-09-13] MEDS ORDERED: Vancomycin 1 GM SDV IV SCH (13:00)
[2019-09-13] MEDS ORDERED: Sodium Chloride 0.9% 10 ML Syringe FLUSH PRN (13:21)
[2019-09-13] MEDS ORDERED: Polyethylene Glycol 3350 Powder 17 GM Packet PO PRN (13:21)
[2019-09-13] MEDS ORDERED: Ondansetron 4 MG/2 ML SDV IV PRN (13:21)
[2019-09-13] MEDS ORDERED: Norepinephrine 4 MG in Dextrose 5% in Water 246 ML IV SCH ×2 (13:30)
[2019-09-13] MEDS: Lactated Ringers 1,000 ML IV SCH ×2 (13:44→21:57)
[2019-09-13] MEDS: Hydrocortisone Sodium Succinate 100 MG/2 ML SDV IVPUSH SCH (13:45)
[2019-09-13] MEDS: Lactobacillus Rhamnosus GG (Probiotic) Cap PO SCH ×2 (13:45→21:21)
[2019-09-13] MEDS ORDERED: Albuterol 8 GM Inhaler INH PRN (13:48)
[2019-09-13] MEDS: Enoxaparin 40 MG/0.4 ML Syringe SUBCUT SCH (14:48)
[2019-09-13] MEDS ORDERED: Vancomycin 2 GM in Sodium Chloride 0.9% 500 ML IV ONE (15:00)
[2019-09-13] MEDS: Piperacillin/Tazobactam/Dext 3.375 GM in Premix Bag 1 BAG IV SCH (17:37)
[2019-09-13] MEDS: Acetaminophen 325 MG Tab PO PRN (20:24)
[2019-09-14] MEDS: Piperacillin/Tazobactam/Dext 3.375 GM in Premix Bag 1 BAG IV SCH ×4 (00:07→17:43)
[2019-09-14] MEDS: Hydrocortisone Sodium Succinate 100 MG/2 ML SDV IVPUSH SCH ×2 (01:53→13:19)
[2019-09-14] MEDS: Lactated Ringers 1,000 ML IV SCH (06:03)
[2019-09-14] MEDS: atorvaSTATin 20 MG Tab PO SCH (08:10)
[2019-09-14] MEDS: Levothyroxine 25 MCG Tab PO SCH (08:10)
[2019-09-14] MEDS: Lactobacillus Rhamnosus GG (Probiotic) Cap PO SCH ×2 (08:10→21:12)
[2019-09-14] MEDS ORDERED: ANAGRELIDE 0.5 MG PO SCH (09:00)
[2019-09-14] MEDS ORDERED: Potassium Chloride 20 MEQ Tab.ER PO ONE (09:00)
[2019-09-14] MEDS ORDERED: atorvaSTATin 10 MG Tab PO SCH (09:00)
--- NOTE | 2019-09-14 09:23 | PCM.PN ---
- General Info Date of Service: 09/14/19 Subjective Update: Mr. Berg has significantly improved from admission, stable vital signs and afebrile. Hypotension has resolved and he has had no significant temperature elevations. He feels significantly improved with resolution of headache, denies shortness of breath or cough. White blood cell count has normalized. Functional Status: Reports: Tolerating Diet, Ambulating, Urinating - Review of Systems General: Reports: Weakness. Denies: Fever, Chills HEENT: Denies: Headaches Pulmonary: Reports: No Symptoms Cardiovascular: Reports: No Symptoms Gastrointestinal: Reports: No Symptoms - Patient Data Vitals - Most Recent: Last Vital Signs Temp 96.8 F L 09/14/19 08:00 Pulse 76 09/14/19 06:00 Resp 16 09/14/19 08:00 BP 122/65 09/14/19 08:00 Pulse Ox 95 09/14/19 08:00 Weight - Most Recent: 225 lb 9.178 oz I&O - Last 24 Hours: Intake & Output 09/13/19 09/14/19 09/14/19 22:59 06:59 14:59 Intake Total 3340 1537 Output Total 400 450 450 Balance 2940 1087 -450 Lab Results Last 24 Hours: Laboratory Results - last 24 hr 09/13/19 09/13/19 09/13/19 Range/Units 10:00 10:00 10:00 WBC 11.6 H (4.5-11.0) K/uL RBC 3.77 L (4.30-5.90) M/uL Hgb 12.7 (12.0-15.0) g/dL Hct 37.9 L (40.0-54.0) % MCV 101 H (80-98) fL MCH 34 H (27-31) pg MCHC 34 (32-36) % Plt Count 580 H (150-400) K/uL Neut % (Auto) 96 H (36-66) % Lymph % (Auto) 3 L (24-44) % Grundy % (Auto) 1 L (2-6) % Eos % (Auto) 0 L (2-4) % Baso % (Auto) 0 (0-1) % D-Dimer, Quantitative (0.0-400.0) ng/mL Sodium 135 L (140-148) mmol/L Potassium 3.3 L (3.6-5.2) mmol/L Chloride 102 (100-108) mmol/L Carbon Dioxide 25 (21-32) mmol/L Anion Gap 11.3 (5.0-14.0) mmol/L BUN 24 H (7-18) mg/dL Creatinine 1.9 H (0.8-1.3) mg/dL Est Cr Clr Drug Dosing 37.28 mL/min Estimated GFR (MDRD) 35 L (>60) Glucose 109 H (74-106) mg/dL Lactic Acid 1.3 (0.4-2.0) mmol/L Calcium 7.5 L (8.5-10.1) mg/dL Magnesium (1.8-2.4) mg/dL Ferritin (8-388) ng/ml Total Bilirubin 0.7 D (0.2-1.0) mg/dL AST 73 H D (15-37) U/L ALT 48 (12-78) U/L Alkaline Phosphatase 76 (46-116) U/L Creatine Kinase (39-308) U/L C-Reactive Protein (0.0-0.3) mg/dL Total Protein 6.0 L (6.4-8.2) g/dL Albumin 2.6 L (3.4-5.0) g/dL Globulin 3.4 (2.3-3.5) g/dL Albumin/Globulin Ratio 0.8 L (1.2-2.2) Procalcitonin ng/mL CSF Tube Number CSF Volume mls CSF Appearance (CLEAR) CSF Color (COLORLESS) CSF WBC (0-5) /ul CSF RBC (0-0) /ul CSF Mononuclear Cells (54-100) % CSF Polymorphonuclear (0-7) % CSF Glucose (40-70) mg/dL CSF Total Protein (15-45) mg/dL COVID-19 PCR (NEGATIVE) 09/13/19 09/13/19 09/13/19 Range/Units 11:21 11:21 12:15 WBC (4.5-11.0) K/uL RBC (4.30-5.90) M/uL Hgb (12.0-15.0) g/dL Hct (40.0-54.0) % MCV (80-98) fL MCH (27-31) pg MCHC (32-36) % Plt Count (150-400) K/uL Neut % (Auto) (36-66) % Lymph % (Auto) (24-44) % Grundy % (Auto) (2-6) % Eos % (Auto) (2-4) % Baso % (Auto) (0-1) % D-Dimer, Quantitative (0.0-400.0) ng/mL Sodium (140-148) mmol/L Potassium (3.6-5.2) mmol/L Chloride (100-108) mmol/L Carbon Dioxide (21-32) mmol/L Anion Gap (5.0-14.0) mmol/L BUN (7-18) mg/dL Creatinine (0.8-1.3) mg/dL Est Cr Clr Drug Dosing mL/min Estimated GFR (MDRD) (>60) Glucose (74-106) mg/dL Lactic Acid (0.4-2.0) mmol/L Calcium (8.5-10.1) mg/dL Magnesium (1.8-2.4) mg/dL Ferritin (8-388) ng/ml Total Bilirubin (0.2-1.0) mg/dL AST (15-37) U/L ALT (12-78) U/L Alkaline Phosphatase (46-116) U/L Creatine Kinase (39-308) U/L C-Reactive Protein (0.0-0.3) mg/dL Total Protein (6.4-8.2) g/dL Albumin (3.4-5.0) g/dL Globulin (2.3-3.5) g/dL Albumin/Globulin Ratio (1.2-2.2) Procalcitonin ng/mL CSF Tube Number 3 CSF Volume 1.5 mls CSF Appearance Clear (CLEAR) CSF Color Colorless (COLORLESS) CSF WBC 3 (0-5) /ul CSF RBC 3 H (0-0) /ul CSF Mononuclear Cells 100 (54-100) % CSF Polymorphonuclear 0 (0-7) % CSF Glucose 71 H (40-70) mg/dL CSF Total Protein 37.5 (15-45) mg/dL COVID-19 PCR Negative (NEGATIVE) 09/13/19 09/13/19 09/13/19 Range/Units 13:08 13:09 13:09 WBC (4.5-11.0) K/uL RBC (4.30-5.90) M/uL Hgb (12.0-15.0) g/dL Hct (40.0-54.0) % MCV (80-98) fL MCH (27-31) pg MCHC (32-36) % Plt Count (150-400) K/uL Neut % (Auto) (36-66) % Lymph % (Auto) (24-44) % Grundy % (Auto) (2-6) % Eos % (Auto) (2-4) % Baso % (Auto) (0-1) % D-Dimer, Quantitative 3490 H (0.0-400.0) ng/mL Sodium (140-148) mmol/L Potassium (3.6-5.2) mmol/L Chloride (100-108) mmol/L Carbon Dioxide (21-32) mmol/L Anion Gap (5.0-14.0) mmol/L BUN (7-18) mg/dL Creatinine (0.8-1.3) mg/dL Est Cr Clr Drug Dosing mL/min Estimated GFR (MDRD) (>60) Glucose (74-106) mg/dL Lactic Acid (0.4-2.0) mmol/L Calcium (8.5-10.1) mg/dL Magnesium (1.8-2.4) mg/dL Ferritin 1383 H (8-388) ng/ml Total Bilirubin (0.2-1.0) mg/dL AST (15-37) U/L ALT (12-78) U/L Alkaline Phosphatase (46-116) U/L Creatine Kinase 1550 H (39-308) U/L C-Reactive Protein 14.14 H (0.0-0.3) mg/dL Total Protein (6.4-8.2) g/dL Albumin (3.4-5.0) g/dL Globulin (2.3-3.5) g/dL Albumin/Globulin Ratio (1.2-2.2) Procalcitonin ng/mL CSF Tube Number CSF Volume mls CSF Appearance (CLEAR) CSF Color (COLORLESS) CSF WBC (0-5) /ul CSF RBC (0-0) /ul CSF Mononuclear Cells (54-100) % CSF Polymorphonuclear (0-7) % CSF Glucose (40-70) mg/dL CSF Total Protein (15-45) mg/dL COVID-19 PCR (NEGATIVE) 09/13/19 09/14/19 09/14/19 Range/Units 13:09 06:03 06:03 WBC 9.7 (4.5-11.0) K/uL RBC 4.01 L (4.30-5.90) M/uL Hgb 13.2 (12.0-15.0) g/dL Hct 40.4 (40.0-54.0) % MCV 101 H (80-98) fL MCH 33 H (27-31) pg MCHC 33 (32-36) % Plt Count 372 (150-400) K/uL Neut % (Auto) 92 H (36-66) % Lymph % (Auto) 5 L (24-44) % Grundy % (Auto) 3 (2-6) % Eos % (Auto) 0 L (2-4) % Baso % (Auto) 0 (0-1) % D-Dimer, Quantitative (0.0-400.0) ng/mL Sodium 139 L (140-148) mmol/L Potassium 3.5 L (3.6-5.2) mmol/L Chloride 106 (100-108) mmol/L Carbon Dioxide 23 (21-32) mmol/L Anion Gap 13.5 (5.0-14.0) mmol/L BUN 21 H (7-18) mg/dL Creatinine 1.5 H (0.8-1.3) mg/dL Est Cr Clr Drug Dosing 47.22 mL/min Estimated GFR (MDRD) 46 L (>60) Glucose 112 H (74-106) mg/dL Lactic Acid (0.4-2.0) mmol/L Calcium 7.5 L (8.5-10.1) mg/dL Magnesium 1.9 (1.8-2.4) mg/dL Ferritin (8-388) ng/ml Total Bilirubin 0.7 (0.2-1.0) mg/dL AST 169 H D (15-37) U/L ALT 83 H (12-78) U/L Alkaline Phosphatase 120 H (46-116) U/L Creatine Kinase (39-308) U/L C-Reactive Protein (0.0-0.3) mg/dL Total Protein 5.7 L (6.4-8.2) g/dL Albumin 2.3 L (3.4-5.0) g/dL Globulin 3.4 (2.3-3.5) g/dL Albumin/Globulin Ratio 0.7 L (1.2-2.2) Procalcitonin 8.26 H* ng/mL CSF Tube Number CSF Volume mls CSF Appearance (CLEAR) CSF Color (COLORLESS) CSF WBC (0-5) /ul CSF RBC (0-0) /ul CSF Mononuclear Cells (54-100) % CSF Polymorphonuclear (0-7) % CSF Glucose (40-70) mg/dL CSF Total Protein (15-45) mg/dL COVID-19 PCR (NEGATIVE) Dayron Results Last 24 Hours: Microbiology 09/13/19 11:28 Gram Stain - Final Cerebral Spinal Fluid CSF Culture - Preliminary NO GROWTH AFTER 1 DAY Med Orders - Current: Current Medications Acetaminophen (Tylenol) 650 mg PO Q4H PRN PRN Reason: Pain (Mild 1-3)/fever Last Admin: 09/13/19 20:24 Dose: 650 mg Albuterol (Ventolin Hfa) 0 gm INH Q2H PRN PRN Reason: Dyspnea Atorvastatin Calcium (Lipitor) 20 mg PO DAILY COUNT INCLUDES THE [facility] Last Admin: 09/14/19 08:10 Dose: 20 mg Enoxaparin Sodium (Lovenox) 40 mg SUBCUT Q24H COUNT INCLUDES THE [facility] Last Admin: 09/13/19 14:48 Dose: 40 mg Hydrocortisone Sodium Succinate (Solu-Cortef) 100 mg IVPUSH Q12H COUNT INCLUDES THE [facility] Last Admin: 09/14/19 01:53 Dose: 100 mg Piperacillin/Tazobactam/ (Dextrose 3.375 gm/ Premix) 50 mls @ 100 mls/hr IV Q6H COUNT INCLUDES THE [facility] Last Admin: 09/14/19 06:01 Dose: 100 mls/hr Levofloxacin/Dextrose 750 mg/ (Premix) 150 mls @ 100 mls/hr IV Q48H COUNT INCLUDES THE [facility] Vancomycin HCl 1.5 gm/ Sodium (Chloride) 250 mls @ 166.667 mls/hr IV Q12H COUNT INCLUDES THE [facility] Lactobacillus Rhamnosus (Culturelle) 1 cap PO BID COUNT INCLUDES THE [facility] Last Admin: 09/14/19 08:10 Dose: 1 cap Levothyroxine Sodium (Levothyroxine) 25 mcg PO ACBREAKFAST COUNT INCLUDES THE [facility] Last Admin: 09/14/19 08:10 Dose: 25 mcg Ondansetron HCl (Zofran) 4 mg IV Q4H PRN PRN Reason: Nausea/Vomiting Polyethylene Glycol (Miralax) 17 gm PO DAILY PRN PRN Reason: Constipation Sodium Chloride (Saline Flush) 10 ml FLUSH ASDIRECTED PRN PRN Reason: Keep Vein Open Discontinued Medications Sodium Chloride (Normal Saline) 1,000 mls @ 1,000 mls/hr IV ASDIRECTED COUNT INCLUDES THE [facility] Last Admin: 09/13/19 10:07 Dose: 1,000 mls/hr Lactated Ringer's (Ringers, Lactated) 1,000 mls @ 1,000 mls/hr IV ASDIRECTED COUNT INCLUDES THE [facility] Last Admin: 09/13/19 11:17 Dose: 1,000 mls/hr Ceftriaxone Sodium 1 gm/ (Sodium Chloride) 50 mls @ 100 mls/hr IV ONETIME ONE Stop: 09/13/19 11:59 Last Admin: 09/13/19 11:39 Dose: 100 mls/hr Lactated Ringer's (Ringers, Lactated) 1,000 mls @ [facility] Stop: 09/13/19 13:16 Last Admin: 09/13/19 12:22 Dose: 999 mls/hr Levofloxacin/Dextrose 750 mg/ (Premix) 150 mls @ 100 mls/hr IV Q48H COUNT INCLUDES THE [facility] Stop: 09/13/19 15:00 Last Admin: 09/13/19 12:37 Dose: 100 mls/hr Piperacillin/Tazobactam/ (Dextrose 3.375 gm/ Premix) 50 mls @ 100 mls/hr IV Q6H COUNT INCLUDES THE [facility] Stop: 09/13/19 14:00 Last Admin: 09/13/19 12:54 Dose: 100 mls/hr Vancomycin HCl 2 gm/ Sodium (Chloride) 500 mls @ 250 mls/hr IV ONETIME ONE Stop: 09/13/19 16:59 Last Admin: 09/13/19 14:49 Dose: 250 mls/hr Lactated Ringer's (Ringers, Lactated) 1,000 mls @ 125 mls/hr IV [facility] Last Admin: 09/14/19 06:03 Dose: 125 mls/hr Norepinephrine Bitartrate 4 mg (/ Dextrose/Water) 250 mls @ 7.5 mls/hr IV TITRATE [facility]; Protocol Non-Formulary Medication (Anagrelide [Agrylin]) 0.5 mg PO DAILY [facility] Potassium Chloride (Klor-Con M20) 40 meq PO ONETIME ONE Stop: 09/14/19 09:01 Vancomycin HCl (Vancomycin) 1 gm IV .PHARMACY TO DOSE [facility] Stop: 09/13/19 13:01 - Exam Quality Assessment: DVT Prophylaxis General: Alert, Oriented, Cooperative, Mild Distress Lungs: Clear to Auscultation, Normal Respiratory Effort Cardiovascular: Regular Rate, Regular Rhythm, No Murmurs GI/Abdominal Exam: Soft, Non-Tender, No Organomegaly, No Distention Extremities: Non-Tender, No Pedal Edema Sepsis Event Note - Evaluation Sepsis Screening Result: No Definite Risk - Focused Exam Vital Signs: Vital Signs Temp Pulse Resp BP Pulse Ox 09/14/19 08:00 96.8 F L 16 122/65 95 09/14/19 06:00 97.5 F 76 16 136/86 92 L 09/14/19 04:00 98.6 F 70 20 126/46 L 92 L 09/14/19 02:00 98.6 F 68 19 119/57 L 94 L 09/14/19 00:00 98.6 F 83 17 114/66 93 L 09/13/19 22:00 98.7 F 79 20 115/65 93 L Date Exam was Performed: 09/14/19 Time Exam was Performed: 09:19 - Problem List Review Problem List Initiated/Reviewed/Updated: Yes - My Orders Last 24 Hours: My Active Orders 09/13/19 12:26 Resuscitation Status Routine 09/13/19 12:30 Lactobacillus Rhamnosus GG [Culturelle] 1 cap PO BID 09/13/19 13:21 Patient Status [ADT] Routine Ambulate [RC] QID Cardiac Monitoring [RC] Q6H Height and Weight [RC] DAILY Intake and Output [RC] QSHIFT Notify Provider Vital Signs [RC] ASDIRECTED Oxygen Therapy [RC] PRN Peripheral IV Care [RC] Q12H Up With Assistance [RC] ASDIRECTED Up to Chair [RC] QID Vital Signs [RC] Q2H Acetaminophen [Tylenol] 650 mg PO Q4H PRN Ondansetron [Zofran] 4 mg IV Q4H PRN Sodium Chloride 0.9% [Saline Flush] 10 ml FLUSH ASDIRECTED PRN polyethylene glycoL 3350 [MiraLAX] 17 gm PO DAILY PRN Peripheral IV Insertion Adult [OM.PC] Routine 09/13/19 13:48 Albuterol [Ventolin HFA] See Dose Instructions INH Q2H PRN 09/13/19 13:49 RT Post Treatment Assessment [RC] Click to Edit 09/13/19 14:00 Hydrocortisone Sod Succinate [Solu-CORTEF] 100 mg IVPUSH Q12H 09/13/19 15:00 Enoxaparin [Lovenox] 40 mg SUBCUT Q24H 09/13/19 18:30 Piperacillin/Tazobactam/Dext [Zosyn in Dextrose Iso-Osmotic 3.375 GM] 3.375 gm Premix Bag 1 bag IV Q6H 09/13/19 Lunch Regular Diet [DIET] 09/14/19 07:30 Levothyroxine 25 mcg PO ACBREAKFAST 09/14/19 09:00 Vancomycin 1.5 gm Sodium Chloride 0.9% [Normal Saline] 250 ml IV Q12H atorvaSTATin [Lipitor] 20 mg PO DAILY 09/14/19 09:19 Convert IV to Saline Lock [OM.PC] Routine 09/15/19 05:00 COMPREHENSIVE METABOLIC PN,CMP [CHEM] Timed 09/15/19 11:00 Levofloxacin/Dextrose 5%-Water [Levaquin in D5W 750 MG/150 ML] 750 mg Premix Bag 1 bag IV Q48H - Plan Plan:: ASSESSMENT AND PLAN PNEUMONIA WITH SEPSIS-there are no other obvious sources of infection identified , bilateral hazy infiltrates noted on chest x-ray. Appears much more likely to represent bacterial infection, pro calcitonin markedly elevated. COVID-19 test is negative -Saline lock IV -Blood cultures pending -Broad-spectrum IV antibiotic therapy; vancomycin, Zosyn, levofloxacin, pending other test results and cultures -De-escalate antibiotics if blood cultures negative ACUTE KIDNEY INJURY-likely secondary to dehydration and intravascular volume depletion. No function has improved with hydration -Closely monitor urine output and renal function MAINTENANCE ISSUES -DVT prophylaxis; Lovenox 40 mg subcu daily -GI prophylaxis; not indicated -Jc catheter; not indicated -Nutrition; regular diet -Nicotine dependence; not required CODE STATUS-FULL CODE ADMISSION STATUS-patient will be admitted to inpatient status, expect at least a 2 night hospital stay for evaluation and management of problems as outlined above. At the time of this admission I do not reasonably expected evaluation and management of this problem will require more than a 96 hour hospital stay. DISPOSITION-anticipate discharge to home after the hospital stay. PRIMARY CARE PROVIDER-
[2019-09-14] MEDS: Acetaminophen 325 MG Tab PO PRN ×2 (12:45→16:55)
[2019-09-14] MEDS: Enoxaparin 40 MG/0.4 ML Syringe SUBCUT SCH (16:41)
[2019-09-14] MEDS: ANAGRELIDE 0.5 MG PO SCH (19:29)
[2019-09-15] MEDS: Piperacillin/Tazobactam/Dext 3.375 GM in Premix Bag 1 BAG IV SCH ×4 (00:06→17:52)
[2019-09-15] MEDS: Hydrocortisone Sodium Succinate 100 MG/2 ML SDV IVPUSH SCH ×2 (01:40→14:07)
[2019-09-15] MEDS: Acetaminophen 325 MG Tab PO PRN ×2 (01:40→10:28)
[2019-09-15] MEDS: ANAGRELIDE 0.5 MG PO SCH ×2 (06:00→17:54)
[2019-09-15] MEDS: Levothyroxine 25 MCG Tab PO SCH ×2 (06:01→09:05)
--- NOTE | 2019-09-15 07:28 | PCM.PN ---
- General Info Date of Service: 09/15/19 Subjective Update: MKr. Berg has had a difficult night, with little sleep. Slight temperature elevation yesterday evening, otherwise stable. Denies significant shortness of breath or cough. Respiratory status is otherwise been stable. Functional Status: Reports: Tolerating Diet, Ambulating, Urinating - Review of Systems General: Reports: Fever, Weakness, Chills Pulmonary: Reports: No Symptoms Cardiovascular: Reports: No Symptoms Gastrointestinal: Reports: No Symptoms - Patient Data Vitals - Most Recent: Last Vital Signs Temp 96.7 F L 09/15/19 06:00 Pulse 71 09/15/19 06:00 Resp 15 09/15/19 06:00 BP 148/75 H 09/15/19 06:00 Pulse Ox 94 L 09/15/19 06:00 Weight - Most Recent: 225 lb 9.178 oz I&O - Last 24 Hours: Intake & Output 09/14/19 09/15/19 09/15/19 22:59 06:59 14:59 Intake Total 250 800 Output Total 500 575 Balance -250 225 Lab Results Last 24 Hours: Laboratory Results - last 24 hr 09/15/19 Range/Units 05:00 Sodium 144 (140-148) mmol/L Potassium 3.8 (3.6-5.2) mmol/L Chloride 109 H (100-108) mmol/L Carbon Dioxide 26 (21-32) mmol/L Anion Gap 12.8 (5.0-14.0) mmol/L BUN 21 H (7-18) mg/dL Creatinine 1.5 H (0.8-1.3) mg/dL Est Cr Clr Drug Dosing 47.22 mL/min Estimated GFR (MDRD) 46 L (>60) Glucose 109 H (74-106) mg/dL Calcium 7.6 L (8.5-10.1) mg/dL Total Bilirubin 0.5 (0.2-1.0) mg/dL AST 174 H (15-37) U/L ALT 77 (12-78) U/L Alkaline Phosphatase 116 (46-116) U/L Total Protein 5.7 L (6.4-8.2) g/dL Albumin 2.3 L (3.4-5.0) g/dL Globulin 3.4 (2.3-3.5) g/dL Albumin/Globulin Ratio 0.7 L (1.2-2.2) Dayron Results Last 24 Hours: Microbiology 09/13/19 11:28 Gram Stain - Final Cerebral Spinal Fluid CSF Culture - Preliminary NO GROWTH AFTER 2 DAYS 09/13/19 10:02 Aerobic Blood Culture - Preliminary Blood - Venous - Lab Draw NO GROWTH AFTER 1 DAY Anaerobic Blood Culture - Preliminary NO GROWTH AFTER 1 DAY 09/13/19 10:00 Aerobic Blood Culture - Preliminary Blood - Venous NO GROWTH AFTER 1 DAY Anaerobic Blood Culture - Preliminary NO GROWTH AFTER 1 DAY Med Orders - Current: Current Medications Acetaminophen (Tylenol) 650 mg PO Q4H PRN PRN Reason: Pain (Mild 1-3)/fever Last Admin: 09/15/19 01:40 Dose: 650 mg Albuterol (Ventolin Hfa) 0 gm INH Q2H PRN PRN Reason: Dyspnea Atorvastatin Calcium (Lipitor) 20 mg PO DAILY [facility] Last Admin: 09/14/19 08:10 Dose: 20 mg Hydrocortisone Sodium Succinate (Solu-Cortef) 100 mg IVPUSH Q12H [facility] Last Admin: 09/15/19 01:40 Dose: 100 mg Piperacillin/Tazobactam/ (Dextrose 3.375 gm/ Premix) 50 mls @ 100 mls/hr IV Q6H [facility] Last Admin: 09/15/19 06:00 Dose: 100 mls/hr Levofloxacin/Dextrose 750 mg/ (Premix) 150 mls @ 100 mls/hr IV Q48H [facility] Lactobacillus Rhamnosus (Culturelle) 1 cap PO BID [facility] Last Admin: 09/14/19 21:12 Dose: 1 cap Levothyroxine Sodium (Levothyroxine) 25 mcg PO ACBREAKFAST [facility] Last Admin: 09/15/19 06:01 Dose: 25 mcg Anagrelide 0.5mg (Own Med ) 0 each PO BID@0600,1800 [facility] Last Admin: 09/15/19 06:00 Dose: 1 each Ondansetron HCl (Zofran) 4 mg IV Q4H PRN PRN Reason: Nausea/Vomiting Polyethylene Glycol (Miralax) 17 gm PO DAILY PRN PRN Reason: Constipation Sodium Chloride (Saline Flush) 10 ml FLUSH ASDIRECTED PRN PRN Reason: Keep Vein Open Discontinued Medications Enoxaparin Sodium (Lovenox) 40 mg SUBCUT Q24H [facility] Last Admin: 09/14/19 16:41 Dose: Not Given Sodium Chloride (Normal Saline) 1,000 mls @ 1,000 mls/hr IV ASDIRECTED [facility] Last Admin: 09/13/19 10:07 Dose: 1,000 mls/hr Lactated Ringer's (Ringers, Lactated) 1,000 mls @ 1,000 mls/hr IV ASDIRECTED [facility] Last Admin: 09/13/19 11:17 Dose: 1,000 mls/hr Ceftriaxone Sodium 1 gm/ (Sodium Chloride) 50 mls @ 100 mls/hr IV ONETIME ONE Stop: 09/13/19 11:59 Last Admin: 09/13/19 11:39 Dose: 100 mls/hr Lactated Ringer's (Ringers, Lactated) 1,000 mls @ 999 mls/hr IV ASDIRECTED [facility] Stop: 09/13/19 13:16 Last Admin: 09/13/19 12:22 Dose: 999 mls/hr Levofloxacin/Dextrose 750 mg/ (Premix) 150 mls @ 100 mls/hr IV Q48H [facility] Stop: 09/13/19 15:00 Last Admin: 09/13/19 12:37 Dose: 100 mls/hr Piperacillin/Tazobactam/ (Dextrose 3.375 gm/ Premix) 50 mls @ 100 mls/hr IV Q6H [facility] Stop: 09/13/19 14:00 Last Admin: 09/13/19 12:54 Dose: 100 mls/hr Vancomycin HCl 2 gm/ Sodium (Chloride) 500 mls @ 250 mls/hr IV ONETIME ONE Stop: 09/13/19 16:59 Last Admin: 09/13/19 14:49 Dose: 250 mls/hr Lactated Ringer's (Ringers, Lactated) 1,000 mls @ 125 mls/hr IV ASDIRECTED [facility] Last Admin: 09/14/19 06:03 Dose: 125 mls/hr Norepinephrine Bitartrate 4 mg (/ Dextrose/Water) 250 mls @ 7.5 mls/hr IV TITRATE [facility]; Protocol Vancomycin HCl 1.5 gm/ Sodium (Chloride) 250 mls @ 166.667 mls/hr IV Q12H [facility] Last Admin: 09/14/19 21:12 Dose: 166.667 mls/hr Non-Formulary Medication (Anagrelide [Agrylin]) 0.5 mg PO DAILY [facility] Potassium Chloride (Klor-Con M20) 40 meq PO ONETIME ONE Stop: 09/14/19 09:01 Last Admin: 09/14/19 09:49 Dose: 40 meq Vancomycin HCl (Vancomycin) 1 gm IV .PHARMACY TO DOSE [facility] Stop: 09/13/19 13:01 - Exam Quality Assessment: DVT Prophylaxis General: Alert, Oriented, Cooperative, Mild Distress Lungs: Clear to Auscultation, Normal Respiratory Effort, Decreased Breath Sounds Cardiovascular: Regular Rate, Regular Rhythm, Murmurs GI/Abdominal Exam: Soft, Non-Tender, No Organomegaly, No Distention Extremities: Non-Tender, No Pedal Edema Sepsis Event Note - Evaluation Sepsis Screening Result: No Definite Risk - Focused Exam Vital Signs: Vital Signs Temp Temp Pulse Resp BP Pulse Ox 09/15/19 06:00 96.7 F L 71 15 148/75 H 94 L 09/15/19 04:00 97.7 F 65 9 L 140/62 95 09/15/19 02:49 97.1 F 09/15/19 02:10 97.7 F 09/15/19 02:00 97.3 F 63 23 H 161/79 H 97 09/15/19 01:40 97.3 F 09/15/19 00:00 96.7 F L 62 19 142/67 H 95 09/14/19 22:00 97.3 F 62 17 124/55 L 96 09/14/19 20:00 97.5 F 64 20 124/61 92 L Date Exam was Performed: 09/15/19 Time Exam was Performed: 07:23 - Problem List Review Problem List Initiated/Reviewed/Updated: Yes - My Orders Last 24 Hours: My Active Orders 09/14/19 07:30 Levothyroxine 25 mcg PO ACBREAKFAST 09/14/19 09:00 atorvaSTATin [Lipitor] 20 mg PO DAILY 09/14/19 09:19 Convert IV to Saline Lock [OM.PC] Routine 09/14/19 18:00 Non-Formulary Medication [NF Drug] 0 each PO BID@0600,1800 09/15/19 07:17 Patient Status [ADT] Routine 09/15/19 07:19 Discontinue Telemetry Monitoring [Cardiac Monitoring Discontinue] [RC] Click to Edit 09/15/19 11:00 Levofloxacin/Dextrose 5%-Water [Levaquin in D5W 750 MG/150 ML] 750 mg Premix Bag 1 bag IV Q48H - Plan Plan:: ASSESSMENT AND PLAN PNEUMONIA WITH SEPSIS-there are no other obvious sources of infection identified , bilateral hazy infiltrates noted on chest x-ray. Appears much more likely to represent bacterial infection, pro calcitonin markedly elevated. COVID-19 test is negative. Abscess has resolved and he is stable from a respiratory standpoint -Saline lock IV -Blood cultures negative so far, discontinue vancomycin -Broad-spectrum IV antibiotic therapy; Zosyn, levofloxacin, pending cultures -De-escalate antibiotics if blood cultures negative ACUTE KIDNEY INJURY-renal function has stabilized following hydration -Closely monitor urine output and renal function MAINTENANCE ISSUES -DVT prophylaxis; patient refuses Lovenox -GI prophylaxis; not indicated -Jc catheter; not indicated -Nutrition; regular diet -Nicotine dependence; not required CODE STATUS-FULL CODE ADMISSION STATUS-patient will be admitted to inpatient status, expect at least a 2 night hospital stay for evaluation and management of problems as outlined above. At the time of this admission I do not reasonably expected evaluation and management of this problem will require more than a 96 hour hospital stay. DISPOSITION-anticipate discharge to home after the hospital stay. PRIMARY CARE PROVIDER-
[2019-09-15] MEDS: atorvaSTATin 20 MG Tab PO SCH (09:06)
[2019-09-15] MEDS: Lactobacillus Rhamnosus GG (Probiotic) Cap PO SCH ×2 (09:21→20:02)
[2019-09-15] MEDS ORDERED: Levofloxacin/Dextrose 5%-Water 750 MG in Premix Bag 1 BAG IV SCH (11:00)
[2019-09-16] MEDS: Piperacillin/Tazobactam/Dext 3.375 GM in Premix Bag 1 BAG IV SCH ×3 (00:34→13:18)
[2019-09-16] MEDS: Hydrocortisone Sodium Succinate 100 MG/2 ML SDV IVPUSH SCH (01:19)
[2019-09-16] MEDS: Acetaminophen 325 MG Tab PO PRN (03:22)
[2019-09-16] MEDS: ANAGRELIDE 0.5 MG PO SCH (05:39)
[2019-09-16] MEDS: Levothyroxine 25 MCG Tab PO SCH ×2 (05:41→08:00)
[2019-09-16] MEDS: Lactobacillus Rhamnosus GG (Probiotic) Cap PO SCH (09:20)
[2019-09-16] MEDS: atorvaSTATin 20 MG Tab PO SCH (09:20)
--- NOTE | 2019-09-16 13:47 | PCM.DCSUM1 ---
Discharge Summary - Hospital Course Brief History: 74-year-old male with history of hypertension and stage III chronic kidney disease who presented with weakness. He was admitted for management of a bilateral pneumonia and sepsis. Diagnosis: Stroke: No - Discharge Data Discharge Date: 09/16/19 Discharge Disposition: Home, Self-Care 01 Condition: Good - Referral to Home Health Primary Care Physician: PCP None - Discharge Diagnosis/Problem(s) (1) Pneumonia SNOMED Code(s): 163998440 ICD Code: J18.9 - PNEUMONIA, UNSPECIFIED ORGANISM Status: Acute Qualifiers: Pneumonia type: due to unspecified organism Laterality: bilateral Lung location: unspecified part of lung Qualified Code(s): J18.9 - Pneumonia, unspecified organism (2) CKD (chronic kidney disease), stage III SNOMED Code(s): 253760337 ICD Code: N18.3 - CHRONIC KIDNEY DISEASE, STAGE 3 (MODERATE) Status: Chronic (3) HTN (hypertension) SNOMED Code(s): 03252006 ICD Code: I10 - ESSENTIAL (PRIMARY) HYPERTENSION Status: Chronic Qualifiers: Hypertension type: essential hypertension Qualified Code(s): I10 - Essential (primary) hypertension - Patient Summary/Data Hospital Course: Master presented to the emergency room with weakness, headache and nausea. Work- up in the emergency room was suggestive of an atypical appearing bilateral pneumonia with evidence for sepsis. No other obvious evidence for infection was identified. A variety of cultures were obtained and he received aggressive IV fluids as well as broad-spectrum antibiotics in the emergency room. He was admitted to the intensive care unit for further management. He was hypotensive in the emergency room but did eventually respond to IV fluid challenges just prior to being started on vasopressors. He did receive hydrocortisone as a stress dose steroid. Over the next couple of days we saw slow but steady improvement. He did have mild acute kidney injury that improved with hydration. His respiratory status steadily improved. His blood pressures improved and normalized and then did rise slightly prior to discharge. Symptomatically he is feeling much better with improvements in his strength and appetite. His headache has resolved. His cultures have all been negative. He has not needed supplemental oxygen. Fever curve has improved. Antibiotics were de-escalated successfully without worsening of his symptoms or clinical status. He feels well enough to go home at this time. Kidney function has improved but is not quite back to baseline. He has not had fevers in 24 hours. I believe he is safe for outpatient management. He will be discharged home with levofloxacin monotherapy. He will have 2 more doses after hospital discharge. He will have early follow-up if symptoms do not continue to get better or if they get worse. - Patient Instructions Diet: Regular Diet as Tolerated Activity: As Tolerated Showering/Bathing: May Shower Notify Provider of: Fever, Increased Pain Other/Special Instructions: 1. You were in the hospital for management of bilateral pneumonia. We did not determine a causative bacteria. Your condition has been improving with antibiotic therapy. I do recommend ongoing antibiotic therapy with levofloxacin. Please take 750 mg every 48 hours for two doses. Your first dose outside of the hospital will be due on Monday around 10 AM. 2. Continue your other home medications as previously prescribed. 3. You may increase your activity as tolerated. It is important to keep moving to maintain and improve your muscle strength following the acute infection. You should listen to your body and if you feel fatigued or short of breath please take a break. - Discharge Plan *PRESCRIPTION DRUG MONITORING PROGRAM REVIEWED*: Not Applicable *COPY OF PRESCRIPTION DRUG MONITORING REPORT IN PATIENT MCKENZIE: Not Applicable Prescriptions/Med Rec: Levofloxacin 750 mg PO Q48H #2 tablet Home Medications: Home Meds Levothyroxine Sodium [Synthroid] 25 mcg PO DAILY 09/12/19 [History] atorvaSTATin [Lipitor] 20 mg PO DAILY 09/12/19 [History] lisinopriL [Lisinopril] 40 mg PO DAILY 09/12/19 [History] Anagrelide [Agrylin] 0.5 mg PO DAILY 09/13/19 [History] Ondansetron [Ondansetron ODT] 4 mg PO ASDIRECTED PRN 09/13/19 [History] Levofloxacin 750 mg PO Q48H #2 tablet 09/16/19 [Rx] Oxygen Therapy Mode: Room Air Patient Handouts: Levofloxacin tablets, Community-Acquired Pneumonia, Adult, [id number] Referrals: PCP,None [Primary Care Provider] - (f/u as needed next week if your symptoms get worse or do not continue to get better) - Discharge Summary/Plan Comment DC Time >30 min.: No - Patient Data Vitals - Most Recent: Last Vital Signs Temp 37.0 C 09/16/19 12:16 Pulse 52 L 09/16/19 12:16 Resp 20 09/16/19 12:16 BP 176/77 H 09/16/19 12:16 Pulse Ox 95 09/16/19 12:16 Weight - Most Recent: 105.324 kg I&O - Last 24 hours: Intake & Output 09/15/19 09/16/19 09/16/19 22:59 06:59 14:59 Intake Total 50 700 1050 Output Total 200 250 400 Balance -150 450 650 MARGOTH Results - Last 24 hrs: Microbiology 09/13/19 10:02 Aerobic Blood Culture - Preliminary Blood - Venous - Lab Draw NO GROWTH AFTER 3 DAYS Anaerobic Blood Culture - Preliminary NO GROWTH AFTER 3 DAYS 09/13/19 10:00 Aerobic Blood Culture - Preliminary Blood - Venous NO GROWTH AFTER 3 DAYS Anaerobic Blood Culture - Preliminary NO GROWTH AFTER 3 DAYS 09/13/19 11:28 Gram Stain - Final Cerebral Spinal Fluid CSF Culture - Final NO GROWTH AFTER 3 DAYS Med Orders - Current: Current Medications Acetaminophen (Tylenol) 650 mg PO Q4H PRN PRN Reason: Pain (Mild 1-3)/fever Last Admin: 09/16/19 03:22 Dose: 650 mg Albuterol (Ventolin Hfa) 0 gm INH Q2H PRN PRN Reason: Dyspnea Atorvastatin Calcium (Lipitor) 20 mg PO DAILY [facility] Last Admin: 09/16/19 09:20 Dose: 20 mg Piperacillin/Tazobactam/ (Dextrose 3.375 gm/ Premix) 50 mls @ 100 mls/hr IV Q6H [facility] Last Admin: 09/16/19 13:18 Dose: 100 mls/hr Levofloxacin/Dextrose 750 mg/ (Premix) 150 mls @ 100 mls/hr IV Q48H [facility] Last Admin: 09/15/19 10:31 Dose: 100 mls/hr Lactobacillus Rhamnosus (Culturelle) 1 cap PO BID [facility] Last Admin: 09/16/19 09:20 Dose: 1 cap Levothyroxine Sodium (Levothyroxine) 25 mcg PO ACBREAKFAST [facility] Last Admin: 09/16/19 08:00 Dose: Not Given Anagrelide 0.5mg (Own Med ) 0 each PO BID@0600,1800 [facility] Last Admin: 09/16/19 05:39 Dose: 1 each Ondansetron HCl (Zofran) 4 mg IV Q4H PRN PRN Reason: Nausea/Vomiting Polyethylene Glycol (Miralax) 17 gm PO DAILY PRN PRN Reason: Constipation Sodium Chloride (Saline Flush) 10 ml FLUSH ASDIRECTED PRN PRN Reason: Keep Vein Open Discontinued Medications Enoxaparin Sodium (Lovenox) 40 mg SUBCUT Q24H [facility] Last Admin: 09/14/19 16:41 Dose: Not Given Hydrocortisone Sodium Succinate (Solu-Cortef) 100 mg IVPUSH Q12H [facility] Last Admin: 09/16/19 01:19 Dose: 100 mg Sodium Chloride (Normal Saline) 1,000 mls @ 1,000 mls/hr IV ASDIRECTED [facility] Last Admin: 09/13/19 10:07 Dose: 1,000 mls/hr Lactated Ringer's (Ringers, Lactated) 1,000 mls @ 1,000 mls/hr IV ASDIRECTED [facility] Last Admin: 09/13/19 11:17 Dose: 1,000 mls/hr Ceftriaxone Sodium 1 gm/ (Sodium Chloride) 50 mls @ 100 mls/hr IV ONETIME ONE Stop: 09/13/19 11:59 Last Admin: 09/13/19 11:39 Dose: 100 mls/hr Lactated Ringer's (Ringers, Lactated) 1,000 mls @ 999 mls/hr IV ASDIRECTED [facility] Stop: 09/13/19 13:16 Last Admin: 09/13/19 12:22 Dose: 999 mls/hr Levofloxacin/Dextrose 750 mg/ (Premix) 150 mls @ 100 mls/hr IV Q48H [facility] Stop: 09/13/19 15:00 Last Admin: 09/13/19 12:37 Dose: 100 mls/hr Piperacillin/Tazobactam/ (Dextrose 3.375 gm/ Premix) 50 mls @ 100 mls/hr IV Q6H [facility] Stop: 09/13/19 14:00 Last Admin: 09/13/19 12:54 Dose: 100 mls/hr Vancomycin HCl 2 gm/ Sodium (Chloride) 500 mls @ 250 mls/hr IV ONETIME ONE Stop: 09/13/19 16:59 Last Admin: 09/13/19 14:49 Dose: 250 mls/hr Lactated Ringer's (Ringers, Lactated) 1,000 mls @ 125 mls/hr IV ASDIRECTED [facility] Last Admin: 09/14/19 06:03 Dose: 125 mls/hr Norepinephrine Bitartrate 4 mg (/ Dextrose/Water) 250 mls @ 7.5 mls/hr IV TITRATE [facility]; Protocol Vancomycin HCl 1.5 gm/ Sodium (Chloride) 250 mls @ 166.667 mls/hr IV Q12H [facility] Last Admin: 09/14/19 21:12 Dose: 166.667 mls/hr Non-Formulary Medication (Anagrelide [Agrylin]) 0.5 mg PO DAILY [facility] Potassium Chloride (Klor-Con M20) 40 meq PO ONETIME ONE Stop: 09/14/19 09:01 Last Admin: 09/14/19 09:49 Dose: 40 meq Vancomycin HCl (Vancomycin) 1 gm IV .PHARMACY TO DOSE [facility] Stop: 09/13/19 13:01
[2019-09-17 13:09] LABS: HSV-1 DNA Negative (Negative); HSV-2 DNA Negative (Negative)
== END 2019-09-16 15:00 | disposition home or self-care (01) | DRG 720 ==
LOC: JP.ED 09:42 → JP.ICU 12:23 → JP.MS 09-15 09:15
PROVIDERS: ADMIT Hospitalist; ATTEND Internal Medicine
DX: A41.9 Sepsis, unspecified organism (principal); J18.9 Pneumonia, unspecified organism; E78.00 Pure hypercholesterolemia, unspecified; E03.9 Hypothyroidism, unspecified; I12.9 Hypertensive chronic kidney disease with stage 1 through stage 4 chronic kidney disease, or unspecified chronic kidney disease; N18.3 Chronic kidney disease, stage 3 (moderate); N17.9 Acute kidney failure, unspecified; E86.0 Dehydration; Z20.828 Contact with and (suspected) exposure to other viral communicable diseases; Z79.899 Other long term (current) drug therapy; Z79.890 Hormone replacement therapy
CPT/HCPCS: 36415; 71045; 71045-26; 80053; 82550; 82728; 82945; 83605; 83735; 84145; 84157; 85025; 85379; 86140; 87040; 87070; 87205; 87476; 87529; 87529-59; 89050; 96361; 96365; 99285-25; A9270-GY; J0696; J1650; J1720; J1956; J2543; J3370; J7030; J7040; J7050; J7120

== ENCOUNTER 2024-04-30 09:51 | Emergency (ER) | payer OTHER ==
[2024-04-30 10:12] LABS: HEMATOCRIT 16.9 % (38.4-49.7); MEAN CORPUSCULAR HEMOGLOBIN 35.3 pg (31.6-35.5); MEAN CORPUSCULAR HGB CONC 31.4 g/dL (31.6-35.5); MEAN CORPUSCULAR VOLUME 112.7 fL (81.4-99.0); PLATELET COUNT,PLT 308 K/uL (130-375)
[2024-04-30] MEDS: Pantoprazole 40 MG Vial IVPUSH ONE (10:26)
[2024-04-30] MEDS: Ondansetron 4 MG/2 ML SDV IVPUSH ONE (10:26)
[2024-04-30] MEDS: Sodium Chloride 0.9% 1,000 ML IV SCH ×2 (10:27→11:50)
[2024-04-30 10:28] LABS: A/G RATIO 0.8 (1.2-2.2); ALANINE AMINOTRANSFERASE,ALT 50 U/L (12-78); ALBUMIN 2.6 g/dL (3.4-5.0); ALKALINE PHOSPHATASE 97 U/L (46-116); ANION GAP 10.1 mmol/L (5.0-14.0); ASPARTATE AMNIOTRANSFERASE,AST 63 U/L (15-37); BILIRUBIN TOTAL 0.3 mg/dL (0.2-1.0); BLOOD UREA NITROGEN,BUN 61 mg/dL (7-18); CALCIUM 7.8 mg/dL (8.5-10.1); CARBON DIOXIDE,CO2 25 mmol/L (21-32); CHLORIDE,CL 106 mmol/L (100-108); CREATININE 2.3 mg/dL (0.8-1.3); EST CRCL DRUG DOSING (CG) 29.99 mL/min; ESTIMATED GFR 29 mL/min (>60); GLUCOSE RANDOM 151 mg/dL (74-106); POTASSIUM,K 4.2 mmol/L (3.6-5.2); PROTEIN TOTAL,TP 5.8 g/dL (6.4-8.2); SODIUM,NA 141 mmol/L (140-148)
[2024-04-30 10:39] LABS: HEMOGLOBIN 5.3 g/dL (12.9-16.9); WHITE BLOOD CELL COUNT,WBC 115.2 K/uL (3.2-11.0)
[2024-04-30 10:55] LABS: BAND PERCENT MAN 2 % (5-11); EOSINOPHILS ABSOLUTE MAN 1.15 K/uL (0.00-0.40); EOSINOPHILS PERCENT MAN 1 % (2-4); LYMPHOCYTES ABSOLUTE MAN 20.74 K/uL (0.8-3.3); LYMPHOCYTES PERCENT MAN 18 % (24-44); MONOCYTES ABSOLUTE MAN 78.34 K/uL (0.20-0.90); MONOCYTES PERCENT MAN 68 % (2-6); NEUTROPHILS ABSOLUTE MAN 5.76 K/uL (1.0-7.6); PROMYELOCYTE ABSOLUTE MAN 6.91 K/uL; PROMYELOCYTE PERCENT MAN 6 %; SEG NEUTROPHILS PERCENT MAN 5 % (36-66)
== END 2024-04-30 12:20 ==
LOC: JP.ED 09:51
DX: K92.2 Gastrointestinal hemorrhage, unspecified (principal); I95.9 Hypotension, unspecified; C95.00 Acute leukemia of unspecified cell type not having achieved remission; I10 Essential (primary) hypertension; E78.00 Pure hypercholesterolemia, unspecified; E03.9 Hypothyroidism, unspecified; Z79.899 Other long term (current) drug therapy
CPT/HCPCS: 36415; 36430; 80053; 84443; 85025; 85730; 86850; 86900; 86901; 86920; 86922; 96361; 96374; 96375; 99285; 99291-25; 99292; J2405; J2470; J7030; P9016